=== PATIENT | male | born 1975 | race Caucasian/White ===

== ENCOUNTER 2019-02-11 08:49 | Emergency (ER) | payer SELFPAY ==
[2019-02-11] MEDS ORDERED: diPHENhydraMINE IV* 50 MG/ML 1 ml VIAL (BENADRYL) IV ONE (09:30)
[2019-02-11] MEDS ORDERED: Metoclopramide IV* 5 MG/ML 2 ML VIAL IV ONE (09:30)
--- NOTE | 2019-02-11 09:46 | ED ---
Headache - HPI Summary HPI Summary: The patient is a 43 year old MF presenting to [facility] accompanied by with a chief complaint of R sided numbness after a L sided migraine episode at 0500 . The pt reports that the migraine occurred and the R arm and leg became numb. The R leg returned to normal after a short time, but the R arm remains numb and the pt states he is unable to move it. He reports no other symptoms such as speech, R sided facial droop, rash, fever, chills, sore throat, cough, N /V, and epistaxis. The pt reports taking ASA last night to try and reduce his muscular symptoms. The symptoms are aggravated and alleviated by nothing. The pt has a small Hx of migraines but has never lost sensation during an episode before. - History Of Current Complaint Chief Complaint: EDHeadache Stated Complaint: RT ARM NUMBNESS AND MIGRAINE PER PT Time Seen by Provider: 02/11/19 09:09 Hx Obtained From: Patient Onset/Duration: Sudden Onset, Started days ago - 1, Still Present - R UE is numb Initially Headache Was: Initial Pain Scale(0-10)= - 10, Severe Currently Pain Is: Current Pain Scale(0-10)= - 10, Severe Timing: Constant, Days - 1 Character: Migraine Location of Headache: Other: - L side Aggravating Factor: Nothing Allevating Factors: Nothing Associated Signs And Symptoms: Negative - LE numbness, Fever, chills, nausea, vomititng, epstaxis, sore throat, rash, speech issues, R sided facial droop., Other (Noted In Comments) - Positive: R arm numbness, R arm pain, Migraine - Allergies/Home Medications Allergies/Adverse Reactions: Allergies Allergy/AdvReac Type Severity Reaction Status Date / Time No Known Allergies Allergy Verified 02/11/19 08:55 Home Medications: Home Medications Albuterol HFA INHALER* [Ventolin HFA Inhaler*] 1 puff INH Q4H PRN 02/11/19 [ History Confirmed 02/11/19] PMH/Surg Hx/FS Hx/Imm Hx Previously Healthy: No Respiratory History: Reports: Other Respiratory Problems/Disorders - "LUNG INFECTION" 2013 Infectious Disease History: No Infectious Disease History: Denies: Traveled Outside the [place] in Last 30 Days - Family History Known Family History: Positive: None - Social History Alcohol Use: Occasionally Hx Substance Use: No Substance Use Type: Reports: None Hx Tobacco Use: No Smoking Status (MU): Never Smoked Tobacco Review of Systems Negative: Fever, Chills Negative: Epistaxis, Sore Throat Negative: Cough Negative: Vomiting, Nausea Positive: Decreased ROM - R arm Negative: Rash Positive: Headache - Mirgraine, Numbness - R arm and R leg at onset; R arm only during visit All Other Systems Reviewed And Are Negative: Yes Physical Exam - Summary Physical Exam Summary: Constitutional: Well-developed, Well-nourished, Alert. (-) Distressed Skin: Warm, Dry HENT: Normocephalic; Atraumatic Eyes: Conjunctiva normal Neck: Musculoskeletal ROM normal neck. (-) JVD, (-) Stridor, (-) Tracheal deviation Cardio: Rhythm regular, rate normal, Heart sounds normal; Intact distal pulses; The pedal pulses are 2+ and symmetric. Radial pulses are 2+ and symmetric. (-) Murmur Pulmonary/Chest wall: Effort normal. (-) Respiratory distress, (-) Wheezes, (-) Rales Abd: Soft, (-) tenderness, (-) Distension, (-) Guarding, (-) Rebound Musculoskeletal: (-) Edema, weakness in R arm with behavior specialist strength due to pain Lymph: (-) Cervical adenopathy Neuro: Alert, Oriented x3 Psych: Mood and affect Normal NIH: +1 for decreased sensation in R arm Triage Information Reviewed: Yes Vital Signs On Initial Exam: Initial Vitals Temp Pulse Resp BP Pulse Ox 97.9 F 96 16 140/93 95 02/11/19 08:50 02/11/19 08:50 02/11/19 08:50 02/11/19 08:50 02/11/19 08:50 Vital Signs Reviewed: Yes Diagnostics - Vital Signs Vital Signs Temp Pulse Resp BP Pulse Ox 02/11/19 08:50 97.9 F 96 16 140/93 95 - Laboratory Result Diagrams: 02/11/19 09:44 02/11/19 09:44 Lab Statement: Any lab studies that have been ordered have been reviewed, and results considered in the medical decision making process. - CT Brain CT Interpretation Completed By: Radiologist Summary of CT Findings: NO ACUTE INTRACRANIAL PATHOLOGY. ED Physician has reviewed this report. - EKG 0933 Cardiac Rate: NL - 77 BPM EKG Rhythm: Sinus Rhythm Summary of EKG Findings: Normal sinus rhythm at 77 bpm, normal SC, normal QRS, normal QTc, R axis deviation, ST elevation in V2 and V3, normal T-waves. Nonspecific EKG. National Institutes Of Health - NIH Scale Level of Consciousness: Alert/Keenly Responsive Ask Patient the Month and His/Her Age: Both Correct Ask Pt to Open/Close Eyes and Frozen Pie Maker/Release Non-Paretic Hand: Both Correctly Best Gaze (Only Horizontal Eye Movement): Normal Visual Field Testing: No Visual Loss Facial Paresis-Pt to Smile & Close Eyes or Grimace Symmetry: Normal/Symmetrical Motor Function - Right Arm: No Drift-Holds 10 Seconds Motor Function - Left Arm: No Drift-Holds 10 Seconds Motor Function - Right Leg: No Drift-Holds 10 Seconds Motor Function - Left Leg: No Drift-Holds 10 Seconds Limb Ataxia-Must be out of Proportion to Weakness Present: Absent Sensory (Use Pinprick to Test Arms/Legs/Trunk/Face): Pinprick Less on Affected Best Language (Describe Picture, Name Items): No Aphasia Dysarthria (Read Several Words): Normal Extinction and Inattention: No Abnormality Total Score: 1 Headache Course/Dx - Course Course Of Treatment: The patient is a 43 year old MF presenting to [facility] accompanied by with a chief complaint of R sided numbness after a L sided migraine episode at 0500 02/10/19. The pt had a brain CT which showed NO ACUTE INTRACRANIAL PATHOLOGY. The pt also had an EKG that showed a normal sinus rhythm at 77 bpm, normal SC, normal QRS, normal QTc, R axis deviation, ST elevation in V2 and V3, normal T-waves. Nonspecific EKG. The pt had abnormal MPV of 7.3 L, an IBNR of 1.12 H, and glucose of 116 H. The pt received Benadryl IV 50 mg, Toradol 30 mg IV push, and Reglan IV 10 mg. The pt was discharged home with a migraine and informed to follow-up with his PCP. - Diagnoses Differential Diagnosis/HQI/PQRI: Epidural Hematoma, Subdural Hematoma, Migraine , Sinus Headache Provider Diagnoses: Migraine Discharge - Sign-Out/Discharge Documenting (check all that apply): Patient Departure - discharge Patient Received Moderate/Deep Sedation with Procedure: No - Discharge Plan Condition: Stable Disposition: HOME Patient Education Materials: Migraine Headache (ED) Print Language: FIJIAN Forms: *Work Release Referrals: López Beltran MD [Primary Care Provider] - - Billing Disposition and Condition Condition: STABLE Disposition: Home - Attestation Statements Document Initiated by Mariano: Yes Documenting Scribe: John Miranda Provider For Whom Mariano is Documenting (Include Credential): Emi Wilson MD Scribe Attestation: I, John Miranda, scribed for Emi Diaz MD on 02/11/19 at 1842. Scribe Documentation Reviewed: Yes Provider Attestation: The documentation as recorded by the John green accurately reflects the service I personally performed and the decisions made by me, Emi Diaz MD Status of Scribe Document: Viewed
[2019-02-11 09:57] LABS: ABS Eosinophils 0.2 10^3/ul (0-0.6); ABS Lymphocytes 1.6 10^3/ul (1.0-4.8); ABS Monocytes 0.4 10^3/ul (0-0.8); Eosinophil % 3.2 %; Hematocrit 47 % (42-52); Hemoglobin 16.2 g/dL (14.0-18.0); Lymphocyte % 21.7 %; Mean Corpuscular HGB Conc 34 g/dL (31-36); Mean Corpuscular Hemoglobin 31 pg (27-31); Mean Corpuscular Volume 89 fL (80-94); Mean Platelet Volume 7.3 fL (7.4-10.4); Nucleated Red Blood Cells % 0.1; Platelet Count 283 10^3/uL (150-450); Red Blood Count 5.29 10^6 /uL (4.18-5.48); Red Cell Distribution Width 14 % (10.5-15); White Blood Count 7.2 10^3/uL (3.5-10.8)
[2019-02-11 10:01] LABS: INR 1.12 (0.82-1.09)
[2019-02-11 10:14] LABS: Albumin 4.2 g/dL (3.2-5.2); Albumin/Globulin Ratio 1.8 (1-3); BUN/Creatinine Ratio 17.2 (8-20); Calcium 9.4 mg/dL (8.6-10.3); EGFR African American 115.3 (>60); EGFR Non-African American 95.3 (>60); Globulin 2.4 g/dL (2-4); Total Bilirubin 0.4 mg/dL (0.2-1.0); Total Protein 6.6 g/dL (6.4-8.9)
[2019-02-11] MEDS ORDERED: Ketorolac INJ* 30 MG/ML 1 ML VIAL IV PUSH ONE (11:04)
[2019-02-11 11:14] VITALS: BP 110/72
== END 2019-02-11 11:13 | disposition home or self-care (01) ==
LOC: ED 08:49
DX: G43.909 Migraine, unspecified, not intractable, without status migrainosus (principal); R20.0 Anesthesia of skin
CPT/HCPCS: 36415; 70450; 80053; 83605; 84484; 85025; 85610; 93005; 96374; 96375; 99282; J1200; J1885; J2765